=== PATIENT | female | born 1990 | race Caucasian/White ===

== ENCOUNTER → 2017-04-20 | Outpatient (CLI) | payer OTHER | LOC: FIMAGING 14:32 | PROVIDERS: ATTEND Advanced Practice Midwife | DX: Z34.01 Encounter for supervision of normal first pregnancy, first trimester (principal); Z3A.10 10 weeks gestation of pregnancy ==

== ENCOUNTER 2017-11-08 18:56 | Inpatient (IN) | payer OTHER ==
[2017-11-08] MEDS ORDERED: OXYTOCIN/NORMAL SALINE 20 UNIT/1,000 ML BAG IV ONE (19:57)
[2017-11-08] MEDS ORDERED: LIDOCAINE 1% 300 MG/30 ML SDV ONE (19:58)
--- NOTE | 2017-11-08 20:34 | PDGENHP ---
History and Physical - Chief Complaint contractions - History of Present Illness 28 G1 at 39w3d by LMP c/w 10 wk US, here with contractions since 1615. Uncomplicated course, care with [facility] since early first trimester. Arrived in L&D nearly at 9 cm dilated. labs: 12.8/35.2 plt 155 A pos Ab neg RPR - NR Rub low immune hbsAg neg HIV neg GC neg Quad screen neg 1 hr GTT 81 12.9/35.2 History Information - Allergies/Home Medication List Allergies/Adverse Reactions: No Known Allergies Allergy (Unverified 08/11/14 04:41) Home Medications: Bcp 05/30/10 [Last Taken Unknown] I have personally reviewed and updated: family history, medical history, social history, surgical history - Past Medical History no pertinent PMH - Surgical History Additional surgical history: R acl reconstruction - Social History Smoking Status: Never smoked Alcohol Use: None Drug Use: None Review of Systems Review of Systems: ROS: 10pt was reviewed & negative except for what was stated in HPI & below Physical Exam Physical Exam: vss afeb I met pt immediately prior to delivery. Full exam not done prior to delivery. Cardiovascular: regular rate and rhythym Respiratory: no respiratory distress Musculoskeletal: full muscle strength Psychiatric: interacting appropriately Assessment & Plan Assessment: Primip in active labor. Anticipate vag delivery. GBS neg
[2017-11-08] MEDS ORDERED: ACETAMINOPHEN 325 MG TAB PO PRN (20:37)
[2017-11-08] MEDS ORDERED: HYDROCORTISONE 0.5% CREAM TP PRN (20:37)
[2017-11-08] MEDS ORDERED: SIMETHICONE 80 MG TAB CHEW PO PRN (20:37)
[2017-11-08] MEDS ORDERED: OXYTOCIN/NORMAL SALINE 1,000 ML IV PRN (21:25)
[2017-11-08] MEDS ORDERED: LIDOCAINE 1% 300 MG/30 ML SDV SC PRN (21:25)
[2017-11-08] MEDS ORDERED: LR 1,000 ML IV PRN (21:25)
--- NOTE | 2017-11-08 21:56 | OBDEL ---
Info Type: Vaginal Presentation at Delivery: Vertex L&D Analgesia/Anesthesia Type: None GBS+: No - Care Provider Inspector Cold Working/BACK FACER: Susanna Ordoñez - Hospital Course Intrapartum: 11/08/17 21:53 uncomplicated - rapid progress Indications for Delivery: Spontaneous Labor Vaginal Delivery - Delivery Provider Delivery Physician/CNM: Sola Elder - Labor and Delivery Onset of Contractions Date: 11/08/17 Onset of Contractions Time: 17:30 Onset of Contractions Type: Spontaneous Rupture of Membranes Date: 11/08/17 Rupture of Membranes Time: 19:31 Rupture of Membranes Type: Spontaneous Amniotic Fluid Color: Clear Dilation Complete Date: 11/08/17 Dilation Complete Time: 19:19 Placenta Delivery Date: 11/08/17 Placenta Delivery Time: 20:01 Total Hours of Labor: 2 Laceration: Other (Specify) (Bilateral periurethral lacs - Right repaired with 3.0 Vicryl, Left sulcus lac also repaired with 3.0 Vicryl) Repair: 3-0, Vicryl Vaginal Sponge Count Correct: Yes Vaginal Needle Count Correct: Yes Vaginal Sweep Performed: Yes EBL: 350 Delivery Events: None Delivery Comment: Pt arrived in L&D at 9 cm dilated, progressed without incident and pushed for 6 minutes. Delivery of a male infant from the EMMANUEL position. Bulb suction was performed on the perineum. No nuchal cord. Turtle sign noted, McRobert's maneuver performed and with gentle traction, easy delivery of the anterior right shoulder, followed by easy delivery of the body, which was placed directly on maternal abdomen. After a 1 minute delay, the cord was cut and clamped. Cord blood was obtained. The BACK FACER, Susanna Ordoñez, was in attendance. The placenta delivered without incident. The fundus was firm with IV pitocin. 20ml of 1% lidocaine was infiltrated prior to the repair of the lacerations. There were bilateral periurethral lacerations and a left sulcus laceration. 3.0 Vicryl was used to repair the sulcus lac and the R periurethral lac. The L periurethral lac was hemostatic. A bimanual exam removed clots from the lower uterine segment. Sponge, lap and needle counts were correct. The patient and infant were left in good condirion with the RN in attendance. - Medications Labor Augmentation/Induction Methods Used: None Data MAC: 11/12/17 Gestational Age: 39 week(s) and 3 day(s) Shoulder Dystocia Time Head Delivered: 19:51 Time Body Delivered: 19:51 1st Maneuver Attempted Maneuvers: Benjamin (successful) ICD10 Worksheet Patient Problems: Problems Problem Status Onset (spontaneous vaginal delivery) Acute - ICD10 Problem Qualifiers (1) (spontaneous vaginal delivery)
[2017-11-08] MEDS: IBUPROFEN 600 MG TAB PO PRN (21:58)
[2017-11-08 22:45] LABS: PLATELET COUNT 170 10^3/uL (150-400)
[2017-11-09] MEDS: IBUPROFEN 600 MG TAB PO PRN ×4 (04:10→22:16)
[2017-11-09] MEDS ORDERED: MEASLES,MUMPS&RUBELLA VACC/PF 0.5 ML VIAL SC ONE (10:07)
--- NOTE | 2017-11-09 10:07 | OBPP ---
Progress Note Assessment/Plan: Assessment: [id number] s/p anemia Rubella low immune periurethral laceration/left sulcus laceration Plan: ambulate/hydrate Dermoplast PRN cont cont PO iron MMR booster vaccination prior to d/c plan to d/c home tomorrow 11/09/17 10:03 11/09/17 10:06 11/09/17 10:06 Subjective/ Course: 11/09/17 10:05 Pt doing well, she is ambulating and voiding without difficulty. She is , she desires to work with today. She denies any heavy bleeding or pain. She denies any sadness/depression. FOB at BS and supportive. She is taking ibuprofen for pain. Objective: 11/09/17 06:15 Patient ABO/Rh A POSITIVE 11/08/17 21:00 Temp Pulse Resp BP Pulse Ox 36.7 C 60 17 100/67 95 11/09/17 08:00 11/09/17 08:00 11/09/17 08:00 11/09/17 08:00 11/09/17 08:00 Uterine Position/Fundal Height: Umbilicus -1, Midline Uterine Tone: Firm Physical Exam - Physical Exam General Appearance: WD/WN, alert, no apparent distress Neck: supple Abdomen: non-tender, soft Skin: normal color, warm/dry Neuro/Psych: alert, normal mood/affect, oriented x 3
[2017-11-09] MEDS: DOCUSATE SODIUM 100 MG CAP PO PRN ×2 (10:30→22:16)
--- NOTE | 2017-11-09 12:22 | PDMN ---
Medical Necessity Medical necessity: Patient meets inpatient criteria per physician note and MCG S -1180 Vaginal Delivery.
[2017-11-10] MEDS: IBUPROFEN 600 MG TAB PO PRN ×2 (03:37→12:43)
[2017-11-10] MEDS ORDERED: MEASLES,MUMPS&RUBELLA VACC/PF 0.5 ML VIAL SC ONE (06:30)
[2017-11-10 09:22] VITALS: BP 102/68
--- NOTE | 2017-11-10 12:41 | OBPP ---
Progress Note Assessment/Plan: Assessment: PPD 2 s/p Rub low imm - MMR anemia Plan: D/C home, iron daily 11/10/17 12:38 Subjective/ Course: 11/09/17 10:05 Pt doing well, she is ambulating and voiding without difficulty. She is , she desires to work with today. She denies any heavy bleeding or pain. She denies any sadness/depression. FOB at and supportive. She is taking ibuprofen for pain. 11/10/17 12:39 Pt doing well. Working on pumping and breast feeding. no milk yet. urinating fine. 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 no dizziness. ready for d/c Objective: 11/09/17 06:15 Patient ABO/Rh A POSITIVE 11/08/17 21:00 Temp Pulse Resp BP Pulse Ox 36.6 C 76 16 102/68 95 11/10/17 09:21 11/10/17 09:21 11/10/17 09:21 11/10/17 09:21 11/10/17 09:21 Uterine Position/Fundal Height: Umbilicus -1 Uterine Tone: Firm Physical Exam - Physical Exam Abdomen: non-tender, soft, other (normal lochia) Extremities: non-tender, pedal edema (mild) Skin: normal color, warm/dry Neuro/Psych: alert, normal mood/affect
--- NOTE | 2017-11-10 12:45 | OBGCSDC ---
General Delivery Information - General Info : 1 Para: 1 Abortions: 0 Type: Vaginal L&D Analgesia/Anesthesia Type: None Admission Date: 11/08/17 Labs: Patient ABO/Rh A POSITIVE 11/08/17 21:00 Hct 31.7 % (38.0-47.0) L 11/09/17 06:15 - Hospital Course Intrapartum: 11/08/17 21:53 uncomplicated - rapid progress : 11/09/17 10:05 Pt doing well, she is ambulating and voiding without difficulty. She is , she desires to work with today. She denies any heavy bleeding or pain. She denies any sadness/depression. FOB at BS and supportive. She is taking ibuprofen for pain. 11/10/17 12:39 Pt doing well. Working on pumping and breast feeding. no milk yet. urinating fine. 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 ready for d/c Vaginal - Delivery Provider Delivery Physician/CNM: Sola Elder - Diagnosis Labor: Spontaneous Rupture of Membranes Type: Spontaneous Amniotic Fluid Color: Clear Laceration: Other (Specify) (Bilateral periurethral lacs - Right repaired with 3.0 Vicryl, Left sulcus lac also repaired with 3.0 Vicryl) Repair: 3-0, Vicryl Delivery Events: None - Delivery EBL: 350 Data MAC: 11/12/17 Gestational Age: 39 week(s) and 5 day(s) [place] Delivery Date: 11/08/17 Delivery Time: 19:51 Sex of : Male Score (1 Min): 8 Score (5 Min): 9 Discharge Information - Discharge Information Condition: Good Instruction/Follow Up: See Instruction Sheet, Four Weeks (with therapist), Six Weeks (with Jerrod)
[2017-11-10] MEDS ORDERED: IRON POLYSAC/IRON HEME 28 MG TAB PO SCH (21:00)
== END 2017-11-10 16:00 | disposition home or self-care (01) | DRG 775 ==
LOC: FLD 18:56 → FOB 22:49
PROVIDERS: ADMIT Hospitalist; ATTEND Obstetrics & Gynecology
PROC: 0HQ9XZZ Repair Perineum Skin, External Approach (ICD-10-PCS; principal; 2017-11-08)
PROC: 0UQMXZZ Repair Vulva, External Approach (ICD-10-PCS; principal; 2017-11-08)
PROC: 10E0XZZ Delivery of Products of Conception, External Approach (ICD-10-PCS; principal; 2017-11-08)
DX: O71.82 Other specified trauma to perineum and vulva (principal); O70.0 First degree perineal laceration during delivery; O90.81 Anemia of the puerperium; Z3A.39 39 weeks gestation of pregnancy; Z37.0 Single live birth; Z23 Encounter for immunization
CPT/HCPCS: J2590